=== PATIENT | male | born 1965 | race Caucasian/White ===

== ENCOUNTER 2022-09-10 21:06 | Emergency (ER) | payer OTHER ==
[~2022-09-10] VITALS: Ht 167.6 cm; Wt 74.8 kg
[2022-09-10 21:20] VITALS: BP_SYST 106; PULSE 68; RESP 18; TEMP 98.4; O2SAT 99
--- NOTE | 2022-09-10 22:08 | NUR ---
Patient to ER bed 6 to gown for evaluation. Side rails up. Report given to LIZZETH .
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
--- NOTE | 2022-09-10 23:15 | NUR ---
ER at bedside examining patient.
[2022-09-10] MEDS ORDERED: CEPH-548 PO (23:43)
[2022-09-10] MEDS ORDERED: DIPH28CR TP (23:43)
--- NOTE | 2022-09-11 00:16 | NUR ---
Patient given written and verbal discharge instructions and verbalizes understanding. ER MD discussed with patient the results and treatment provided. Patient in stable condition. ID arm band removed. Rx of ANTI ITCH CREAM AND KEFLEX given. Patient educated on pain management and to follow up with PMD. Pain Scale 0/10 Opportunity for questions provided and answered. Medication side effect fact sheet provided.
[2022-09-11 00:17] VITALS: BP_SYST 112; PULSE 62; RESP 16; TEMP 98.4; O2SAT 99
== END 2022-09-11 00:17 | disposition home or self-care (01) ==
LOC: SED 21:06
DX: L03.114 Cellulitis of left upper limb (principal); M79.89 Other specified soft tissue disorders; Z79.899 Other long term (current) drug therapy
CPT/HCPCS: 99284